=== PATIENT | male | born 1975 | race Caucasian/White ===

== ENCOUNTER 2016-11-13 22:11 | Emergency (ER) | payer OTHER ==
[2016-11-13] MEDS ORDERED: Bupivacaine 0.5% 30 ML SDV INJECT PRN (22:19)
[2016-11-13] MEDS ORDERED: Lidocaine 1% 30 ML SDV INJECT ONE (22:19)
--- NOTE | 2016-11-13 22:24 | EDM.PDOC ---
ED HPI GENERAL MEDICAL PROBLEM - General Chief Complaint: Upper Extremity Injury/Pain Stated Complaint: right shoulder pain Time Seen by Provider: 11/13/16 22:12 Source of Information: Reports: Patient, RN, RN Notes Reviewed History Limitations: Reports: No Limitations - History of Present Illness INITIAL COMMENTS - FREE TEXT/NARRATIVE: Patient presents to the ED at [facility] with acute onset of right upper shoulder/back pain. Patient states the pain started last . He denies any injury or trauma. No surgeries to the affected area. Patient states he went to his chiropractor last Tuesday, which did not help. He denies any numbness, tingling, or paresthesia to any extremity. He does not have any ROM problems. Onset: Gradual Onset Date: 11/11/16 Duration: Constant Location: Reports: Upper Extremity, Right Quality: Reports: Ache, Throbbing Severity: Moderate Improves with: Reports: None Worsens with: Reports: Movement Context: Denies: Activity, Exercise, Lifting, Sick Contact, Trauma Associated Symptoms: Reports: No Other Symptoms Right Shoulder Pain Score (Numeric/FACES): 6 - Related Data Allergies Allergy/AdvReac Type Severity Reaction Status Date / Time MSG Allergy Headache Uncoded 11/13/16 22:22 Home Meds: Home Meds Lisinopril/Hydrochlorothiazide [Lisinopril-Hctz 10-12.5 mg Tab] 1 each PO DAILY 11/13/16 [History] Review of Systems - Review of Systems Review Of Systems: See Below Constitutional: Denies: Chills, Fever, Weakness Respiratory: Denies: Shortness of Breath, Cough Cardiovascular: Denies: Chest Pain, Palpitations Musculoskeletal: Reports: Shoulder Pain, Back Pain, Muscle Pain, Muscle Stiffness Skin: Reports: No Symptoms Neurological: Denies: Dizziness, Headache, Numbness, Paresthesia, Tingling ED EXAM, GENERAL - Physical Exam Exam: See Below Exam Limited By: No Limitations General Appearance: Alert, No Apparent Distress Neck: Normal Inspection, Non-Tender, Full Range of Motion Respiratory/Chest: No Respiratory Distress, Lungs Clear, Normal Breath Sounds Cardiovascular: Regular Rate, Rhythm Back Exam: Normal Inspection, Full Range of Motion, Muscle Spasm (right scapular /upper right thoracic), Paraspinal Tenderness Extremities: Normal Inspection, Normal Range of Motion Neurological: Alert, Oriented Skin Exam: Warm, Dry, Intact, Normal Color, No Rash Course - Vital Signs Last Recorded V/S: Last Vital Signs Temp 35.9 C 11/13/16 22:17 Pulse 82 11/13/16 22:17 Resp 18 11/13/16 22:17 BP 178/128 H 11/13/16 22:17 Pulse Ox 97 11/13/16 22:17 - Orders/Labs/Meds Orders: Active Orders 24 hr Category Date Time Status Shoulder Comp Rt [CR] Stat Exams 11/13/16 22:26 Ordered Bupivacaine 0.5% [Marcaine 0.5%] Med 11/13/16 22:19 Active 30 ml INJECT ASDIRECTED PRN Medication Orders Bupivacaine HCl (Marcaine 0.5%) 30 ml INJECT ASDIRECTED PRN PRN Reason: Other Last Admin: 11/13/16 22:26 Dose: 30 ml Meds: Medications Generic Name Dose Route Start Last Admin Trade Name Freq PRN Reason Stop Dose Admin Bupivacaine HCl 30 ml 11/13/16 22:19 11/13/16 22:26 Marcaine 0.5% INJECT 30 ml ASDIRECTED PRN Administration Other Discontinued Medications Generic Name Dose Route Start Last Admin Trade Name Freq PRN Reason Stop Dose Admin Cyclobenzaprine HCl 2 packet 11/13/16 23:08 Take Home: Cyclobenzaprine 10 Mg, 4 Tab Pack PO 11/13/16 23:09 ONETIME ONE Lidocaine HCl 30 ml 11/13/16 22:19 11/13/16 22:26 Xylocaine-Mpf 1% INJECT 11/13/16 22:20 30 ml ONETIME ONE Administration Departure - Departure Time of Disposition: 23:11 Disposition: Home, Self-Care 01 Condition: Good Clinical Impression: Muscle spasms of neck - Discharge Information Instructions: Muscle Cramps and Spasms Referrals: Boston Rios PA-C [Primary Care Provider] - Forms: ED Department Discharge Additional Instructions: 1. Stay well hydrated and rest 2. Alternate heat/ice to right neck/shoulder 3. Continue with Tylenol/Advil every 4 hours 4. Take muscle relaxers as needed; these may make you drowsy 5. See you Primary as symptoms warrant; I would recommend physical therapy - Problem List Review Problem List Initiated/Reviewed/Updated: Yes - My Orders Last 24 Hours: My Active Orders 11/13/16 22:19 Bupivacaine 0.5% [Marcaine 0.5%] 30 ml INJECT ASDIRECTED PRN 11/13/16 22:26 Shoulder Comp Rt [CR] Stat - Assessment/Plan Last 24 Hours: My Active Orders 11/13/16 22:19 Bupivacaine 0.5% [Marcaine 0.5%] 30 ml INJECT ASDIRECTED PRN 11/13/16 22:26 Shoulder Comp Rt [CR] Stat
[2016-11-13] MEDS ORDERED: Take Home: Cyclobenzaprine 10 MG Tab, 4 Tab Pack PO ONE (23:08)
== END 2016-11-13 23:20 | disposition home or self-care (01) ==
LOC: VM.ED 22:11
DX: M62.838 Other muscle spasm (principal); Z79.899 Other long term (current) drug therapy
CPT/HCPCS: 20552; 73030; 99283; A9270